=== PATIENT | male | born 1990 | race Two or more races ===

== ENCOUNTER 2018-08-03 10:11 | Emergency (ER) | payer MEDICAID ==
[~2018-08-03] VITALS: Ht 177.8 cm; Wt 60.2 kg
--- NOTE | 2018-08-03 10:26 | NUR ---
Patient discharged to home in stable conditon. Written and verbal after care instructions given. Patient verbalizes understanding of instructions. PT ambulatory with a steady gait
[2018-08-03 10:27] VITALS: BP 111/77
== END 2018-08-03 10:26 | disposition home or self-care (01) ==
LOC: ER 10:11
DX: Z48.01 Encounter for change or removal of surgical wound dressing (principal); S61.217A Laceration without foreign body of left little finger without damage to nail, initial encounter; W26.0XXA Contact with knife, initial encounter; Y93.89 Activity, other specified; Y92.89 Other specified places as the place of occurrence of the external cause; Y99.8 Other external cause status
CPT/HCPCS: A4663